=== PATIENT | female | born 1935 | race American Indian/Alaskan Native ===

== ENCOUNTER 2021-01-26 12:35 | Emergency (ER) | payer MEDICARE ==
[2021-01-26 13:22] LABS: Basophils # (Auto) 0.1 K/mm3 (0.0-0.1); Basophils % (Auto) 1.8 % (0.0-1.8); Eosinophils # (Auto) 0.3 K/mm3 (0.0-0.4); Eosinophils % (Auto) 4.3 % (0.0-4.3); Hematocrit 36.7 % (30.3-42.9); Hemoglobin 12.7 gm/dl (10.1-14.3); Lymphocytes % (Auto) 14.8 % (13.4-35.0); Mean Corpuscular HGB Conc 35 % (30-34); Mean Corpuscular Volume 85 fl (79-97); Monocytes # (Auto) 0.5 K/mm3 (0.0-0.8); Monocytes % (Auto) 7.2 % (0.0-7.3); Platelet Count 309 K/mm3 (140-440); Red Blood Count 4.32 M/mm3 (3.65-5.03); Red Cell Distribution Width 16.6 % (13.2-15.2)
[2021-01-26 13:42] LABS: Calcium 10.2 mg/dL (8.4-10.2)
[2021-01-26 14:56] LABS: Bilirubin,Urine NEG (Negative); Blood,Urine NEG (Negative); Color,Urine Yellow (Yellow); Mucus,Urine FEW /HPF; Protein,Urine <15 mg/dL mg/dL (Negative); Urobilinogen,Urine < 2.0 mg/dL (<2.0)
--- NOTE | 2021-01-26 17:08 | Emergency Department Report ---
HPI - General Chief Complaint: Dizziness Time Seen by Provider: 01/26/21 16:53 - HPI HPI: This is an 85-year-old female who presents to the emergency department from home with complaint of having a decreased appetite, some recent weight loss, and some nonspecific dizziness/lightheadedness. Overall the symptoms have been going on for the past 2 months. The patient denies any loss of smell but does feel like she has a decreased sense of taste. She still forces herself to eat and yet says that she has lost about 12 pounds over the past 2 months. Her primary care physician is Dr. Thomas Abdalla but she has been not been able to see him in the office regarding her symptoms. She denies any fever, vision change, numbness or paresthesias, slurred speech, chest pain, shortness of breath. The dizziness/lightheadedness is intermittent and the patient describes it as a generalized weakness but also sometimes feels like she is walking off balanced. She has not taken anything for symptoms prior to presentation. ED Past Medical Hx - Past Medical History Previous Medical History?: No - Surgical History Additional Surgical History: TONGUE/ THYROID - Medications Home Medications: Home Medications Medication Instructions Recorded Confirmed Last Taken Type Amlodipine Besylate [Norvasc] 5 mg PO DAILY 01/26/21 01/26/21 Unknown History LORazepam [Lorazepam] 1 mg PO QHS 01/26/21 01/26/21 Unknown History Metoprolol [Lopressor TAB] 50 mg PO DAILY 01/26/21 01/26/21 Unknown History ED Review of Systems ROS: Stated complaint: DIZZY/NO APPETITE Other details as noted in HPI Comment: All other systems reviewed and negative Constitutional: weakness. denies: chills, fever Eyes: denies: eye pain, vision change ENT: denies: ear pain, throat pain Respiratory: denies: cough, shortness of breath Cardiovascular: denies: chest pain, palpitations Gastrointestinal: denies: abdominal pain, vomiting Genitourinary: denies: dysuria, discharge Musculoskeletal: denies: back pain, arthralgia Skin: denies: rash, lesions Neurological: other (Dizziness/lightheadedness). denies: headache Physical Exam - Physical Exam Vital Signs: Vital Signs 01/26/21 12:45 Temperature 98.1 F Pulse Rate 73 Respiratory 20 Rate Blood Pressure 139/71 [Right] O2 Sat by Pulse 99 Oximetry Physical Exam: GENERAL: The patient is well-developed well-nourished. HENT: Normocephalic. Atraumatic. Patient has moist mucous membranes. EYES: Extraocular motions are intact. Pupils equal reactive to light bilaterally. There is some fatigable horizontal nystagmus. NECK: Supple. Trachea is midline. CHEST/LUNGS: Clear to auscultation. There is no respiratory distress noted. HEART/CARDIOVASCULAR: Regular. There is no tachycardia. There is no murmur. ABDOMEN: Abdomen is soft, nontender. Patient has normal bowel sounds. There is no abdominal distention. SKIN: Skin is warm and dry. NEURO: The patient is awake, alert, and oriented. The patient is cooperative. The patient has no focal neurologic deficits. Normal speech. No pronator drift or dysmetria. Cranial nerves II through XII grossly intact. No facial asymmetry. MUSCULOSKELETAL: There is no tenderness or deformity. There is no limitation range of motion. Muscle strength 5 out of 5 upper and lower extremities amita aterally. ED Course Vital Signs 01/26/21 12:45 Temperature 98.1 F Pulse Rate 73 Respiratory 20 Rate Blood Pressure 139/71 [Right] O2 Sat by Pulse 99 Oximetry ED Medical Decision Making - Lab Data Result diagrams: 01/26/21 12:57 01/26/21 12:57 Lab Results 01/26/21 01/26/21 01/26/21 Range/Units 12:57 12:57 17:10 WBC 6.9 (4.5-11.0) K/mm3 RBC 4.32 (3.65-5.03) M/mm3 Hgb 12.7 (10.1-14.3) gm/dl Hct 36.7 (30.3-42.9) % MCV 85 (79-97) fl MCH 29 (28-32) pg MCHC 35 H (30-34) % RDW 16.6 H (13.2-15.2) % Plt Count 309 (140-440) K/mm3 Lymph % (Auto) 14.8 (13.4-35.0) % [place] % (Auto) 7.2 (0.0-7.3) % Eos % (Auto) 4.3 (0.0-4.3) % Baso % (Auto) 1.8 (0.0-1.8) % Lymph # (Auto) 1.0 L (1.2-5.4) K/mm3 [place] # (Auto) 0.5 (0.0-0.8) K/mm3 Eos # (Auto) 0.3 (0.0-0.4) K/mm3 Baso # (Auto) 0.1 (0.0-0.1) K/mm3 Seg Neutrophils % 71.9 H (40.0-70.0) % Seg Neutrophils # 4.9 (1.8-7.7) K/mm3 Sodium 137 (137-145) mmol/L Potassium 3.8 (3.6-5.0) mmol/L Chloride 100.3 (98-107) mmol/L Carbon Dioxide 28 (22-30) mmol/L Anion Gap 13 mmol/L BUN 14 (7-17) mg/dL Creatinine 1.5 H (0.6-1.2) mg/dL Estimated GFR 40 ml/min BUN/Creatinine Ratio 9 % Glucose 195 H (65-100) mg/dL Calcium 10.2 (8.4-10.2) mg/dL Troponin T (0.00-0.029) ng/mL TSH 0.883 (0.270-4.200) mlU/mL Urine Color (Yellow) Urine Turbidity (Clear) Urine pH (5.0-7.0) Ur Specific [place] (1.003-1.030) Urine Protein (Negative) mg/dL Urine Glucose (UA) (Negative) mg/dL Urine Ketones (Negative) mg/dL Urine Blood (Negative) Urine Nitrite (Negative) Urine Bilirubin (Negative) Urine Urobilinogen (<2.0) mg/dL Ur Leukocyte Esterase (Negative) Urine WBC (Auto) (0.0-6.0) /HPF Urine RBC (Auto) (0.0-6.0) /HPF U Epithel Cells (Auto) (0-13.0) /HPF Urine Mucus /HPF 01/26/21 01/26/21 Range/Units 17:13 Unknown WBC (4.5-11.0) K/mm3 RBC (3.65-5.03) M/mm3 Hgb (10.1-14.3) gm/dl Hct (30.3-42.9) % MCV (79-97) fl MCH (28-32) pg MCHC (30-34) % RDW (13.2-15.2) % Plt Count (140-440) K/mm3 Lymph % (Auto) (13.4-35.0) % [place] % (Auto) (0.0-7.3) % Eos % (Auto) (0.0-4.3) % Baso % (Auto) (0.0-1.8) % Lymph # (Auto) (1.2-5.4) K/mm3 [place] # (Auto) (0.0-0.8) K/mm3 Eos # (Auto) (0.0-0.4) K/mm3 Baso # (Auto) (0.0-0.1) K/mm3 Seg Neutrophils % (40.0-70.0) % Seg Neutrophils # (1.8-7.7) K/mm3 Sodium (137-145) mmol/L Potassium (3.6-5.0) mmol/L Chloride (98-107) mmol/L Carbon Dioxide (22-30) mmol/L Anion Gap mmol/L BUN (7-17) mg/dL Creatinine (0.6-1.2) mg/dL Estimated GFR ml/min BUN/Creatinine Ratio % Glucose (65-100) mg/dL Calcium (8.4-10.2) mg/dL Troponin T < 0.010 (0.00-0.029) ng/mL TSH (0.270-4.200) mlU/mL Urine Color Yellow (Yellow) Urine Turbidity Clear (Clear) Urine pH 6.0 (5.0-7.0) Ur Specific [place] 1.014 (1.003-1.030) Urine Protein <15 mg/dl (Negative) mg/dL Urine Glucose (UA) Neg (Negative) mg/dL Urine Ketones Tr (Negative) mg/dL Urine Blood Neg (Negative) Urine Nitrite Neg (Negative) Urine Bilirubin Neg (Negative) Urine Urobilinogen < 2.0 (<2.0) mg/dL Ur Leukocyte Esterase Neg (Negative) Urine WBC (Auto) 1.0 (0.0-6.0) /HPF Urine RBC (Auto) 1.0 (0.0-6.0) /HPF U Epithel Cells (Auto) 9.0 (0-13.0) /HPF Urine Mucus Few /HPF - EKG Data -: EKG Interpreted by Pr EKG shows normal: sinus rhythm, axis, intervals, QRS complexes, ST-T waves (There is flattening of the T waves with some T wave inversions to the anterior leads) Rate: normal - EKG Data When compared to previous EKG there are: previous EKG unavailable Interpretation: other (Sinus rhythm at 68 bpm, normal axis, normal intervals. There is some flattening of the T waves with some T wave inversions to the anterior leads. No ST elevation [place].) - Radiology Data Radiology results: report reviewed NONENHANCED CT SCAN OF THE HEAD: INDICATION / CLINICAL INFORMATION: 85 years Female; dizziness. TECHNIQUE: Routine CT head without contrast. All CT scans at this location are performed using CT dose reduction for ALARA by means of automated exposure control. COMPARISON: None. FINDINGS: BRAIN / INTRACRANIAL CONTENTS: No acute hemorrhage, mass effect, midline shift, hydrocephalus, or acute, large territorial infarct. 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 ORBITS: No significant abnormality of visualized orbits. SINUSES / MASTOIDS: No significant abnormality of the visualized paranasal sinuses or mastoid air cells. ADDITIONAL FINDINGS: None. IMPRESSION: No acute focal parenchymal lesion - Medical Decision Making This patient presents to the emergency department with a complaint of a decreased appetite, some recent weight loss over the past 2 months, and some nonspecific dizziness/lightheadedness. On examination the patient does not have any focal, motor or sensory deficits and her cranial nerves are intact. The patient is a 0 on the NIH stroke scale. An EKG was done that does not have any morphology consistent with ST elevation myocardial infarction or any dysrhythmia. CT scan of the head without contrast does not show any hemorrhage, large vessel occlusion, or any other acute process. The patient does appear to have a history of a previously coiled aneurysm around the [place]. Labs have been unremarkable including CBC, metabolic panel, thyroid function, urinalysis and she had a negative troponin. The patient did have some renal insufficiency with a GFR of 40. She denies any significant history of chronic kidney disease but does admit to seeing Dr. Sanon in the past. Her vital signs have been reassuring throughout her ED course including being afebrile. The patient was seen ambulatory throughout the emergency department and both appears and feels stable. For this reason the patient appears safe for dis charge home. She has been instructed to follow-up with a primary care physician. She has been instructed to follow-up with Dr. Sanon or a forge tender regarding the renal insufficiency. She has been given an outpatient referral for a neurologist regarding the dizziness/lightheadedness. The patient has been instructed to return to the close to the emergency department with any worsening of her symptoms, new or concerning symptoms not addressed during this emergency department visit, or with any acute distress. All the patient's questions have been answered and she understands and agrees to the plan. Critical Care Time: No Critical care attestation.: If time is entered above; I have spent that time in minutes in the direct care of this critically ill patient, excluding procedure time. ED Disposition Clinical Impression: Dizziness, Decreased appetite, Renal insufficiency Disposition: TO HOME OR SELFCARE Is pt being admited?: No Condition: Stable Additional Instructions: Please follow-up with a primary care physician in the next few days. If you are unable to get into see Dr. Abdalla, I have given you a referral for Dr. Alcides Duncan. Please follow-up with Dr. Sanon or a forge tender regarding your decreased kidney function found today on your laboratory studies. Due to the decreased kidney function, please avoid taking any NSAIDs such as ibuprofen, Aleve, naproxen, Advil. I am giving you a referral for a local neurologist, Dr. Bravo, to follow-up regarding your dizziness/lightheadedness. Return to the emergency department with any worsening of your symptoms, new or concerning symptoms not addressed during this current emergency department visit, or with any acute distress. Referrals: THOMAS ABDALLA MD [Primary Care Provider] - 3-5 Days SALVATORE ROBERTS MD [Staff Physician] - 3-5 Days GARRY BRAVO MD [Referring] - 3-5 Days ALCIDES DUNCAN MD [Staff Physician] - 3-5 Days Time of Disposition: 18:36 - Assessment Assessment Interval: Baseline - Level of Consciousness 1a. Level of Consciousness: alert/keenly responsive - LOC Questions 1b. LOC Questions: answers both correctly - LOC Command 1c. LOC Commands: performs tasks correctly - Best Gaze 2. Best Gaze: normal - Visual 3. Visual: no visual loss - Facial Palsy 4. Facial Palsy: normal symmetrical movement - Motor Arm 5a. Motor Arm Left: no drift 5b. Motor Arm Right: no drift - Motor Leg 6a. Motor Leg Left: no drift 6b. Motor Leg Right: no drift - Limb Ataxia 7. Limb Ataxia: absent - Sensory 8. Sensory: normal - Best Language 9. Best Language: no aphasia - Dysarthria 10. Dysarthria: normal - Extinction and Inattention 11. Extinction/Inattention: no abnormality - Scoring Total Score: 0 Stroke Severity: No Stroke Symptoms
--- NOTE | 2021-01-26 17:40 | Cat Scan Report ---
NONENHANCED CT SCAN OF THE HEAD: INDICATION / CLINICAL INFORMATION: 85 years Female; dizziness. TECHNIQUE: Routine CT head without contrast. All CT scans at this location are performed using CT dos e reduction for ALARA by means of automated exposure control. COMPARISON: None. FINDINGS: BRAIN / INTRACRANIAL CONTENTS: No acute hemorrhage, mass effect, midline shift, hydrocephalus, or acu te, large territorial infarct. 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 ORBITS: No significant abnormality of visualized orbits. SINUSES / MASTOIDS: No significant abnormality of the visualized paranasal sinuses or mastoid air hunter ls. ADDITIONAL FINDINGS: None. IMPRESSION: No acute focal parenchymal lesion Signer Name: Merry Gomez MD Signed: 01/26/2021 5:36 PM Workstation Name: [id number]
[2021-01-26 18:05] VITALS: BP 133/68
--- NOTE | 2021-01-29 10:56 | Electrocardiograph Report ---
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
== END 2021-01-26 18:45 | disposition home or self-care (01) ==
LOC: ED 12:35
DX: R42 Dizziness and giddiness (principal); R63.0 Anorexia; N28.9 Disorder of kidney and ureter, unspecified; Z79.899 Other long term (current) drug therapy
CPT/HCPCS: 36415; 70450; 80048; 81001; 84443; 84484; 85025; 93005; 99283